=== PATIENT | male | born 1940 | race Caucasian/White ===

== ENCOUNTER → 2018-06-11 | Outpatient (CLI) | payer OTHER ==
[~2018-06-11] MED LIST: AMLO10 PO; ASPI81CH PO; FERR325 PO; FISH1000 PO; GLUCHON PO; LOSARTAN POTAS100 MG PO; METF500C PO; METO50ER PO; MULVITA PO; PRED20 PO; Pravachol40 MG PO; SPIHYD PO; SPIR25 PO; TIROSINT50 MCG PO
== END | disposition home or self-care (01) ==
LOC: LAB EV 14:44 → LAB SHORT 14:44
DX: J02.9 Acute pharyngitis, unspecified (principal)
CPT/HCPCS: 87070

== ENCOUNTER 2020-05-12 11:58 | Day surgery (SDC) | payer OTHER ==
[~2020-05-12] VITALS: Ht 180.3 cm; Wt 96.6 kg
== END 2020-05-12 13:54 | disposition home or self-care (01) ==
LOC: ORSCSDS 11:58
DX: R13.10 Dysphagia, unspecified (principal); K20.90 Esophagitis, unspecified without bleeding; E66.9 Obesity, unspecified; I10 Essential (primary) hypertension; K44.9 Diaphragmatic hernia without obstruction or gangrene; E11.9 Type 2 diabetes mellitus without complications; K22.2 Esophageal obstruction; Z68.31 Body mass index [BMI] 31.0-31.9, adult; Z79.82 Long term (current) use of aspirin; Z79.84 Long term (current) use of oral hypoglycemic drugs; Z79.899 Other long term (current) drug therapy
CPT/HCPCS: 82947; 88305; 88312; J2704; J7120

== ENCOUNTER 2020-12-15 09:43 | Day surgery (SDC) | payer OTHER ==
[~2020-12-15] VITALS: Ht 177.8 cm; Wt 92.3 kg
== END 2020-12-15 12:33 | disposition home or self-care (01) ==
LOC: ORSCSDS 09:43
PROVIDERS: Internal Medicine Gastroenterology
PROC: 0DBH8ZX Excision of Cecum, Via Natural or Artificial Opening Endoscopic, Diagnostic (ICD-10-PCS; principal; 2020-12-15 11:00)
PROC: 0DBL8ZX Excision of Transverse Colon, Via Natural or Artificial Opening Endoscopic, Diagnostic (ICD-10-PCS; principal; 2020-12-15 11:00)
DX: Z12.11 Encounter for screening for malignant neoplasm of colon (principal); Z86.010 Personal history of colon polyps; D12.0 Benign neoplasm of cecum; D12.3 Benign neoplasm of transverse colon; K57.30 Diverticulosis of large intestine without perforation or abscess without bleeding; K64.8 Other hemorrhoids; I10 Essential (primary) hypertension; Z87.891 Personal history of nicotine dependence; E11.9 Type 2 diabetes mellitus without complications; Z79.84 Long term (current) use of oral hypoglycemic drugs; Z79.899 Other long term (current) drug therapy
CPT/HCPCS: 82947; 88305; J2704; J7120

== ENCOUNTER 2021-11-12 06:16 | Day surgery (SDC) | payer OTHER ==
[~2021-11-12] VITALS: Ht 177.8 cm; Wt 92.1 kg
[2021-11-12] MEDS ORDERED: ESOM20 PO (06:37)
--- NOTE | 2021-11-12 06:48 | NUR ---
11/12/21 0648 Kimberly Westfall 0635 P [id number]
== END 2021-11-12 08:10 | disposition home or self-care (01) ==
LOC: ORSCSDS 06:16
PROVIDERS: Ophthalmology
PROC: 08RK3JZ Replacement of Left Lens with Synthetic Substitute, Percutaneous Approach (ICD-10-PCS; principal; 2021-11-12 07:30)
DX: H25.13 Age-related nuclear cataract, bilateral (principal); I10 Essential (primary) hypertension; E11.9 Type 2 diabetes mellitus without complications; E03.9 Hypothyroidism, unspecified; K21.9 Gastro-esophageal reflux disease without esophagitis; Z87.891 Personal history of nicotine dependence; Z79.84 Long term (current) use of oral hypoglycemic drugs; Z79.899 Other long term (current) drug therapy; Z79.82 Long term (current) use of aspirin
CPT/HCPCS: 82947; J2001; J2250; J3010; J3301; J7040; V2632

== ENCOUNTER 2021-11-26 07:18 | Day surgery (SDC) | payer OTHER ==
[~2021-11-26] VITALS: Ht 170.2 cm; Wt 92.7 kg
[~2021-11-26 07:18] MED LIST changes: +ESOM20 PO
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
== END 2021-11-26 09:20 | disposition home or self-care (01) ==
LOC: ORSCSDS 07:18
PROVIDERS: Ophthalmology
PROC: 08DJ3ZZ Extraction of Right Lens, Percutaneous Approach (ICD-10-PCS; principal; 2021-11-26 08:30)
DX: H25.11 Age-related nuclear cataract, right eye (principal); Z96.1 Presence of intraocular lens; E11.9 Type 2 diabetes mellitus without complications; I10 Essential (primary) hypertension; K21.9 Gastro-esophageal reflux disease without esophagitis; E66.9 Obesity, unspecified; Z68.32 Body mass index [BMI] 32.0-32.9, adult; Z87.891 Personal history of nicotine dependence; Z79.84 Long term (current) use of oral hypoglycemic drugs; Z79.899 Other long term (current) drug therapy
CPT/HCPCS: 82947; J2001; J2250; J3010; J3301; J7040; V2632

== ENCOUNTER → 2023-11-22 | Outpatient (CLI) | payer OTHER | LOC: LAB 08:10 → LAB SHORT 08:10 | DX: J18.9 Pneumonia, unspecified organism (principal) | CPT/HCPCS: 87070; 87205 ==